=== PATIENT | female | born 1975 | race Caucasian/White ===

== ENCOUNTER 2024-12-15 08:53 | Day surgery (SDC) | payer SELFPAY ==
[2024-12-15] VITALS (8 sets, daily range): BP systolic 90–161; BP diastolic 48–76; PULSE 63–92; RESP 16–18; TEMP 36.3–36.7; O2SAT 97–100; BMI 30.3
--- NOTE | 2024-12-15 10:05 | PCM.PRE.AN2 ---
ASA Classification* ASA Classification ASA Classification: 1 Assessment & Plan Anesthesia* Anesthesia Assessment Anesthesia Assessment: Discussed sedation and/or anesthesia options, risks, benefits, and alternatives with patient/parents/legal guardian/POA. Questions invited. The patient/parents/legal guardian/POA seems to understand and agrees to proceed with anesthesia plan. Reviewed the physical assessment, medical history, allergy history and patient home medications list prior to surgery/procedure/anesthetic and documented any changes. Performed airway and anesthesia risk assessments. Anesthesia Type Anesthesia Type: MAC History Source History Obtained from:: Patient and Chart Anesthesia Focused Assessment* Temperature: 98.1 F Pulse Rate: 92 Blood Pressure: 161/76 Respiratory Rate: 18 Pulse Ox: 100 Oxygen Delivery Method: Room Air Airway Assessment Mouth opens: >3 cm Mallampati Score: I Teeth Condition: Caps/Crowns (Patient has several crowns. 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 When Was Last Pacemaker Check QUESTION #4 FULL TEXT: You/Your Family Experience fever (hyperthermia) with Anesthesia Last Oral Intake Last Oral intake: Last Oral Intake NPO since 07:00 12/15/24 09:30 Meds taken in AM with sips of No 12/15/24 09:30 water? Meds patient instructed to take am of surgery Any additional information?: Yes NPO since: 07:00 (Patient water at 7 AM.) Meds taken in AM with sips of water?: No PONV PONV - talent development director: PONV - talent development director Female Yes 12/12/24 10:42 HX of Motion Sickness No 12/12/24 10:42 HX of N/V After Surgery No 12/12/24 10:42 Non-Smoker Yes 12/12/24 10:42 Duration of Surgery greater No 12/12/24 10:42 than 60 minutes Number of Risk Factors 2 12/12/24 10:42 PONV Score Moderate Risk 12/12/24 10:42 Height & Weight Height & Weight: Anesthesia: Height & Weight Height 5 ft 8 in 12/15/24 09:30 Weight: 90.4 kg 12/15/24 09:30 Body Mass Index (BMI) 30.3 12/15/24 09:30 Respiratory Assessment Respiratory Assessment - talent development director: Respiratory Tract Infection Hx - talent development director Hx Respiratory Tract Infection No 12/12/24 10:42 STOP Sleep Apnea STOP Sleep Apnea - talent development director: STOP Sleep Apnea - talent development director Hx Hypertension No 12/12/24 10:42 Hx Sleep Apnea No 12/12/24 10:42 CPAP BIPAP Do you snore loudly (louder No 12/12/24 10:42 than talking or can be heard Do you often feel tired/ No 12/12/24 10:42 fatigued/ sleepy during daytime? Has anyone observed you stop No 12/12/24 10:42 breathing during sleep? STOP Results Negative 12/12/24 10:42 QUESTION #5 FULL TEXT : Do you snore loudly (louder than talking or can be heard through closed doors)? 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 Specify any problems Hx of Preganancy in last 3 No 12/12/24 10:42 Months Nurse Filling Out Transfusion VCHRISTIN 12/12/24 10:42 & Questions: Date: 12/12/24 12/12/24 10:42 Time: 10:43 12/12/24 10:42 Patient unable to answer at this time (ie. confused, unrespo /Reproduction History /Reproductive History - talent development director: /Reproductive Hx- talent development director Hx Now No 12/12/24 10:42 Gestational Age (in weeks): EDC: Hx Hx Para Hx Section SAB No 12/12/24 10:42 PFSH Medical History Anxiety Non-smoker Family history of colon cancer in mother Home Medications ?Medication ?Instructions ?Recorded ?Last Taken ?Type NK 10/28/24 Unknown History Allergy/AdvReac Type Severity Reaction Status Date / Time No Known Allergies Allergy Verified 12/15/24 09:38 Family History Mother Colon cancer, Onset Age: 55 Passed at 55yrs Surgical History Hx of wisdom tooth extraction Hx of dilation and curettage Social History household members: spouse current occupational status: employed Smoking Status: Never smoker alcohol intake: never substance use type: does not use Review of Systems (Anesthesia) ROS Narrative System reviewed and no additional complaints, except as documented.
--- NOTE | 2024-12-15 10:06 | H&P.OPEN ---
HPI - General HPI Narrative BRITNEY MESA, is a 49 F who presents for screening colonoscopy. She has never had a colonoscopy in the past. She does have family history of colon cancer in her mother at age 55. She denies abdominal pain or blood in the stool. [facility] Medical History (Updated 12/12/24 @ 10:42 by Jeanne Jaimes) Anxiety Non-smoker Family history of colon cancer in mother Home Medications ?Medication ?Instructions ?Recorded ?Last Taken ?Type NK 10/28/24 Unknown History Allergy/AdvReac Type Severity Reaction Status Date / Time No Known Allergies Allergy Verified 12/15/24 09:38 Family History (Updated 10/28/24 @ 11:11 by Samina Welsh) Mother Colon cancer, Onset Age: 55 Passed at 55yrs Surgical History (Updated 12/12/24 @ 10:42 by Jeanne Jaimes) Hx of wisdom tooth extraction Hx of dilation and curettage Social History (Updated 10/28/24 @ 11:11 by Samina Welsh) household members: spouse current occupational status: employed Smoking Status: Never smoker alcohol intake: never substance use type: does not use Past Medical/Surgical History Planned Operation Planned Operative Procedure(s): COLONOSCOPY-OA Previous Hospitalizations/Surgeries HX Hospitalizations: No Any Problems With Anesthesia: No You/Your Family Experience Fever (Hyperthermia) With Anes: No Cholinesterase deficiency: No Cardiovascular Hx of Irregular Heartbeat and/or Afib: No Hx Heart Attack: No Hx Congestive Heart Failure: No Hx Rheumatic Fever: No Hx Hypertension: No Hx Internal Defibrillator: No Hx Pacemaker: No Hx Pain in Legs when Walking/Leg Cramps: No Respiratory HX of Shortness of Breath: No Hx Chronic Obstructive Pulmonary Disease (COPD): No Hx Asthma: No Hx Emphysema: No Hx Sleep Apnea: No Hx Respiratory Tract Infection/Cold (presently): No Do You Snore Loudly (louder than talking or can be heard): No Do You Often Feel Tired/ Fatigued/ Sleepy Dring Daytime?: No Has Anyone Observed You Stop Breathing During Sleep?: No Result (for STOP score): Negative Smoking Status: Never smoker Gastrointestinal Hx Gastrointestinal Bleed: No Hx Ulcer: No Neurological Hx Seizures: No Hx Multiple Sclerosis: No Hx Parkinson's Disease: No Hx Head/Neck Injury: No Hx Headaches: No Hx Back Injury/Pain: No Does patient have nerve stimulator: No Blood Disorder Hx Hepatitis: No Hx Anemia: No Reproduction : No Is Patient Lactating: No Genitourinary Hx Renal Disease: No Hx Dialysis: No Musculoskeletal Hx Arthritis: No Hx Gout: No Endocrine Hx Diabetes: No Thyroid Disease: No Psycho/Social Hx Anxiety: No Hx Depression: No Hx Dementia: No Miscellaneous Hx Cancer: No Recent Exposure to Contagious Disease: No Allergies No Known Allergies Allergy (Verified 12/15/24 09:38) Discharge Is Pt Admitted From a Half-Way, or a Mcfp: No After D/C, Where Do you Plan to Go: Return Home Vital Signs Vital Signs Vital Signs: 12/15/24 09:30 12/15/24 09:30 Temperature 98.1 F Temperature Source Temporal Pulse Rate 92 Respiratory Rate 18 Respiratory Pattern Normal Blood Pressure 161/76 H Blood Pressure Mean 104 Blood Pressure Source Monitor Blood Pressure Position Sitting Blood Pressure Location Right Arm Pulse Ox 100 Oxygen Delivery Method Room Air Weight Weight: 199 lb 4.766 oz Body Mass Index (BMI) 30.3 Physical Exam Const alert and oriented x3 HEENT normocephalic Eyes PERRL Resp normal respiratory effort and normal air movement Cardio regular rate and regular rhythm GI soft to palpation, non-tender and non-distended Extremity normal to inspection Assessment & Plan Assessment/Plan (1) Encounter for screening for malignant neoplasm of colon: PLAN: I explained endoscopy in detail to the patient. I explained the risks including but not limited to stroke or heart attack with anesthesia, perforation of the GI tract, bleeding, infection. I explained that any of these could necessitate further emergency surgery. The patient understands and all questions were answered sufficiently. The patient wishes to proceed with procedure. Navneet Warner MD Pager: [facility] [address] [place] [address], [address] [place] [address] Office: Surgery Risks - Colonoscopy Risks Include but are not Limited To: Risks include but are not limited to: Bleeding, perforation requiring further surgery, inability to complete colonoscopy requiring barium enema.
--- NOTE | 2024-12-15 10:34 | OP.COLON_ITS ---
Patient Name: Sisi Sheridan Procedure Date: 12/15/2024 10:10 AM Date of : 1975 Age: 49 Procedure: Colonoscopy Indications: Screening in patient at increased risk: Family history of 1st-degree relative with colorectal cancer before age 60 years Providers: Navneet Warner MD Medicines: Propofol per Anesthesia Patient Profile: This is a 49 year old female. Refer to note in patient chart for documentation of history and physical. Last Colonoscopy: none. The patient's first colonoscopy is today. Complications: No immediate complications. Procedure: Pre-Anesthesia Assessment: - Prior to the procedure, a History and Physical was performed, and patient medications and allergies were reviewed. The patient's tolerance of previous anesthesia was also reviewed. The risks and benefits of the procedure and the sedation options and risks were discussed with the patient. All questions were answered, and informed consent was obtained. Prior Anticoagulants: The patient has taken no anticoagulant or antiplatelet agents. After reviewing the risks and benefits, the patient was deemed in satisfactory condition to undergo the procedure. After I obtained informed consent, the scope was passed under direct vision. Throughout the procedure, the patient's blood pressure, pulse, and oxygen saturations were monitored continuously. The Colonoscope was introduced through the anus and advanced to the cecum, identified by appendiceal orifice and ileocecal valve. The colonoscopy was performed without difficulty. The patient tolerated the procedure well. The quality of the bowel preparation was good. The ileocecal valve, appendiceal orifice, and rectum were photographed. Scope In: 10:20:11 AM Scope Withdrawal Time 0 hours 6 minutes 3 seconds Scope Out: 10:31:51 AM Total Procedure Duration Time 0 hours 11 minutes 40 seconds Findings: The entire examined colon appeared normal on direct and retroflexion views. Impression: - The entire examined colon is normal on direct and retroflexion views. - No specimens collected. Recommendation: - Discharge patient to home. - Resume previous diet. - Continue present medications. - Repeat colonoscopy in 5 years for screening purposes. Procedure Code(s): --- Professional --- 34324, Colonoscopy, flexible; diagnostic, including collection of specimen(s) by brushing or washing, when performed (separate procedure) Diagnosis Code(s): --- Professional --- Z80.0, Family history of malignant neoplasm of digestive organs CPT copyright 2021 [employer]. All rights reserved. The codes documented in this report are preliminary and upon bellstand attendant review may be revised to meet current compliance requirements. Navneet Warner MD 12/15/2024 10:33:56 AM This report has been signed electronically. Number of Addenda: 0 Note Initiated On: 12/15/2024 10:10 AM
--- NOTE | 2024-12-15 10:34 | OP.CCLET_ITS ---
12/15/2024 Cinthia Villegas Re : Colonoscopy procedure for Sisi Sheridan Dear Krissy This procedure was performed on November. My impressions and recommendations are as follows: Impressions : - The entire examined colon is normal on direct and retroflexion views. - No specimens collected. Recommendations : - Discharge patient to home. - Resume previous diet. - Continue present medications. - Repeat colonoscopy in 5 years for screening purposes. My findings are described in the full procedure note, which is enclosed. If I can be of further assistance, please feel free to contact me at Doctor phone number(s): , Work: . Sincerely, Navneet Warner MD 12/15/2024 10:33:56 AM This report has been signed electronically.
--- NOTE | 2024-12-15 10:44 | PCM.POST.ANE ---
Anesthesia: Postop Eval I Current Vital Signs Temperature: 98 F Pulse Rate: 64 Blood Pressure: 91/50 Respiratory Rate: 16 Pulse Ox: 98 Oxygen Delivery Method: Room Air Assessment Airway patent: Yes Spontaneous unlabored respirations: Yes Mental status: Asleep nausea: No Vomiting: No Anesthesia Complication: No Fluid Hydration Crystalloid volume administer (ml): 40 Total IV fluid infused: 40 Progress Note Anesthesia document: Postop Eval 1 completed: Yes
--- NOTE | 2024-12-15 22:28 | PCM.POSTANE2 ---
Anesthesia Postop Eval I Sum Postop Eval Completion status Anesthesia document: Postop Eval 1 completed: Yes Anesthesia Postop Eval I Summary Anesthesia Postop Eval I Summary: Anesthesia Postop Eval I: Assessment Summary Airway patent Yes 12/15/24 10:46 [email or web address] Spontaneous unlabored Yes 12/15/24 10:46 [email or web address] respirations Mental status Asleep 12/15/24 10:46 [email or web address] nausea No 12/15/24 10:46 [email or web address] Vomiting No 12/15/24 10:46 [email or web address] Anesthesia Postop Eval I: Fluid Summary Crystalloid volume administer 40 12/15/24 10:46 [email or web address] (ml) Colloids volume administered ( ml) Blood Product volume administered (ml) Total IV fluid infused 40 12/15/24 10:46 [email or web address] Anesthesia Postop Eval I: Summary Notes Anesthesia Complication No 12/15/24 10:46 [email or web address] Anesthesia Complication Comment: Post-operative progress note Anesthesia: Postop Eval II Evaluation Mental status: Awake and Calm Pain Level: 0 nausea: No Vomiting: No
== END 2024-12-15 11:23 | disposition home or self-care (01) ==
LOC: EN 09:03 → AC 09:03
PROVIDERS: PCP Nurse Practitioner Family; Referring Provider Nurse Practitioner Family; Visit Provider Surgery
PROC: 0DJD8ZZ Inspection of Lower Intestinal Tract, Via Natural or Artificial Opening Endoscopic (ICD-10-PCS; CPT 45378; principal; 2024-12-15 09:55)
DX: Z12.11 Encounter for screening for malignant neoplasm of colon (principal); Z80.0 Family history of malignant neoplasm of digestive organs
CPT/HCPCS: 45378; A4216; J2405